=== PATIENT | male | born 1965 | race Two or more races ===

== ENCOUNTER 2021-07-02 09:41 | Emergency (ER) | payer OTHER ==
[~2021-07-02] VITALS: Ht 175.3 cm; Wt 99.8 kg
[2021-07-02] MEDS ORDERED: ELIQUIS5 M1 PO (10:08)
[2021-07-02] MEDS ORDERED: PLAVIX75 MG (10:09)
[2021-07-02] MEDS ORDERED: VASOTEC20 M1 PO (10:09)
[2021-07-02] MEDS ORDERED: LASIX20 MG PO (10:10)
[2021-07-02] MEDS ORDERED: CARDURA XL4 MG (10:10)
[2021-07-02] MEDS ORDERED: LIPITOR40 M1 (10:11)
[2021-07-02] MEDS ORDERED: LANTUS SOL100 UNIT/1 (10:11)
[2021-07-02] MEDS ORDERED: HUMALOG100 UNIT/2 (10:12)
== END 2021-07-02 14:56 | disposition home or self-care (01) ==
LOC: ER 09:41 → CPU-OBS 09:52 → ER 09:52
DX: R07.89 Other chest pain (principal); Z11.52 Encounter for screening for COVID-19

== ENCOUNTER 2022-02-27 09:14 | Outpatient (CLI) | payer OTHER ==
[~2022-02-27 09:14] MED LIST: CARDURA XL4 MG; ELIQUIS5 M1 PO; HUMALOG100 UNIT/2; LANTUS SOL100 UNIT/1; LASIX20 MG PO; LIPITOR40 M1; PLAVIX75 MG; VASOTEC20 M1 PO
== END 2022-02-27 09:26 | disposition home or self-care (01) ==
LOC: RAD 09:14
PROVIDERS: ATTEND Ophthalmology
DX: Z01.818 Encounter for other preprocedural examination (principal); H43.12 Vitreous hemorrhage, left eye

== ENCOUNTER 2022-02-27 10:10 | Outpatient (CLI) | payer OTHER | END 2022-02-27 10:49 | disposition home or self-care (01) | LOC: LAB 10:10 | PROVIDERS: ATTEND Ophthalmology | DX: Z01.818 Encounter for other preprocedural examination (principal); I10 Essential (primary) hypertension; H43.12 Vitreous hemorrhage, left eye ==